=== PATIENT | female | born 1985 | race Caucasian/White ===

== ENCOUNTER 2017-05-24 14:35 | Outpatient (CLI) | payer MEDICAID, OTHER ==
[2017-05-24 15:18] LABS: BASOPHILS % 0.5 (0.0-1.5); MEAN CORPUSCULAR HEMOGLOBIN 29.7 pg (28.0-34.0); MONOCYTES % 4.6 % (0.0-11.0); NEUTROPHILS # 4.2 # k/uL (1.4-7.7)
[2017-05-24 15:30] LABS: eGFR (African) > 60; eGFR (Non-African) > 60
== END 2017-05-24 14:36 ==
LOC: LAB 14:35
PROVIDERS: ATTEND Physician Assistant
DX: R63.5 Abnormal weight gain (principal); R53.83 Other fatigue
CPT/HCPCS: 36415; 80048; 84439; 84443; 84481; 85025

== ENCOUNTER 2017-07-07 10:36 | Outpatient (CLI) | payer MEDICAID, OTHER ==
--- NOTE | 2017-07-07 15:19 | Diagnostic Imaging Report ---
MARIA OCONNOR [facility] [address] [address] Report Submission Date: Jul 07, 2017 11:01:58 AM CDT Patient Study Name: ZAYDA DELGADO Date: Jul 07, 2017 10:45:13 AM CDT Modality Type: CR Gender: F Description: LOWER EXTREMITY : 89 Institution: [facility] Physician: MARIA OCONNOR Examination: Plain film feet History: foot discomfort Findings: 3 views of the right and left foot demonstrates normal cortical margins. No fracture or dislocation. No soft tissue swelling. No joint effusion. Impression: No acute osseous process. Electronically signed on Jul 07, 2017 11:01:58 AM CDT by: Monroe DOYLE
== END 2017-07-07 10:40 ==
LOC: RAD 10:36
PROVIDERS: ATTEND Physician Assistant
DX: M79.671 Pain in right foot (principal); M79.672 Pain in left foot